=== PATIENT | female | born 1945 | race American Indian/Alaskan Native ===

== ENCOUNTER 2018-07-04 12:43 | Emergency (ER) | payer MEDICARE, MEDICAID ==
[2018-07-04 12:44] VITALS: BMI 31.4
[2018-07-04] MEDS ORDERED: Lidocaine 5% Patch TD ONE (13:17)
--- NOTE | 2018-07-04 13:17 | ED PDOC ---
Arrival/HPI - General Chief Complaint: Trauma Time Seen by Provider: 07/04/18 12:44 Historian: Patient - History of Present Illness Narrative History of Present Illness (Text): 07/04/18 13:09 73 year old F with pmh of cholecystectomy and diabetes present for evaluation s/p mechanical fall on her left side last week. Patient reports she needed help returning to her feet but was still able to ambulate. Patient denies feeling diz zy prior to fall and LOC after. Patient complains of a contusion on her left hip and buttocks as well as chronic generalized weakness. Patient endorses consuming tylenol to alleviate pain. Patient denies any fevers, chills, headache, dizziness, chest pain, shortness of breath, dyspnea on exertion, cough, abdominal pain, nausea, vomiting, diarrhea, neck pain, or any other complaint. Time/Duration: < week Symptom Onset: Sudden Symptom Course: Unchanged Activities at Onset: Light Context: Home Past Medical History - Provider Review Nursing Documentation Reviewed: Yes - Infectious Disease Hx of Infectious Diseases: None - Tetanus Immunization Tetanus Immunization: Unknown - Reproductive Menopause: Yes - Cardiac Hx Cardiac Disorders: Yes (cad) Hx Angina: Yes Hx Circulatory Problems: Yes Hx Congestive Heart Failure: Yes Hx Hypertension: Yes Hx Peripheral Edema: Yes Hx Peripheral Vascular Disease: Yes Other/Comment: h/o leaking valve - Pulmonary Hx Respiratory Disorders: Yes Hx Bronchitis: Yes Hx Chronic Obstructive Pulmonary Disease (COPD): Yes Hx Respiratory Tract Infection: Yes Hx Sleep Apnea: Yes (STOPPED USING C PAP) Hx Tuberculosis: No - Neurological Hx Neurological Disorder: Yes Hx Dizziness: Yes - HEENT Hx HEENT Disorder: Yes Hx Cataracts: Yes (left iol) - Renal Hx Renal Disorder: Yes Other/Comment: HX: CYST ON KIDNEYS - Endocrine/Metabolic Hx Endocrine Disorders: Yes Hx Diabetes Mellitus Type 2: Yes - Hematological/Oncological Hx Blood Disorders: Yes Hx Anemia: Yes Hx Blood Transfusions: No Hx Bruising: Yes Hx Cancer: Yes (UTERINE 2007-HYSTERECTOMY -NO CHEMO) - Integumentary Hx Dermatological Disorder: Yes (bruises) - Musculoskeletal/Rheumatological Hx Musculoskeletal Disorders: Yes Hx Arthritis: Yes Hx Back Pain: Yes Hx Falls: No Hx Herniated Disk: Yes Hx Unsteady Gait: Yes ("SLOW GAIT") - Gastrointestinal Hx Gastrointestinal Disorders: Yes (Chronic Constipation) Hx Gall Bladder Disease: Yes Hx Gastroesophageal Reflux: Yes - Genitourinary/Gynecological Hx Genitourinary Disorders: Yes Hx Incontinence: Yes Hx Uterine Cancer: Yes Hx Urinary Tract Infection: Yes Other/Comment: HX:PROLAPSED BLADDER - Psychiatric Hx Psychophysiologic Disorder: Yes Hx Anxiety: Yes Hx Panic Disorder: Yes Hx Substance Use: No - Surgical History Hx Angioplasty: Yes Hx Cardiac Catheterization: Yes Hx Coronary Stent: Yes (X1) Hx Hysterectomy: Yes (2007) Other/Comment: ectopic - Anesthesia Hx Anesthesia: Yes Hx Anesthesia Reactions: Yes (TROUBLE BREATHING/INTUBATED /ICU POST HYST) Hx Malignant Hyperthermia: No - Suicidal Assessment Feels Threatened In Home Enviroment: No Family/Social History - Physician Review Nursing Documentation Reviewed: Yes Family/Social History: Unknown Family HX Smoking Status: Former Smoker Hx Alcohol Use: No Hx Substance Use: No Hx Substance Use Treatment: No Allergies/Home Meds Allergies/Adverse Reactions: Allergies acetaminophen [From Percocet] Allergy (Severe, Verified 07/04/18 13:03) HALLUCINATIONS codeine Allergy (Severe, Verified 07/04/18 13:03) NAUSEA/DIZZINESS oxycodone HCl [From Percocet] Allergy (Severe, Verified 07/04/18 13:03) HALLUCINATIONS Home Medications: Home Meds Medication Instructions Recorded Confirmed Aspirin [Aspirin EC] 81 mg PO DAILY 05/01/14 05/25/18 Cholecalciferol (Vitamin D3) 1,000 iu PO DAILY 05/01/14 05/25/18 [Vitamin D3] Insulin Aspart, Recombinant 10 unit SC BID 05/01/14 05/25/18 [Novolog] Insulin Glargine, Recombina 35 unit SC HS 05/01/14 05/25/18 [Lantus] amLODIPine [Norvasc] 10 mg PO DAILY 05/01/14 05/25/18 Atorvastatin [Lipitor] 40 mg PO DAILY 07/15/15 05/25/18 Nitroglycerin [Nitrostat] 0.4 mg SL PRN PRN 07/15/15 05/25/18 Isosorbide Mononitrate [Isosorbide 30 mg PO DAILY 02/02/18 05/25/18 Mononitrate ER] Clopidogrel [Plavix] 75 mg PO DAILY 02/04/18 05/25/18 Albuterol 0.5% [Albuterol 0.5% 0.5 ml IH DAILY 05/25/18 05/25/18 Inhal Iliana (2.5 mg/0.5 ml) UD] Fish Oil/Dha/Epa [Fish Oil 1,200 1 each PO DAILY 05/25/18 05/25/18 mg Fish Oil] metFORMIN [glucOPHAGE] 500 mg PO QPM 05/25/18 05/25/18 Review of Systems - Physician Review All systems were reviewed & negative as marked: Yes - Review of Systems Constitutional: Normal Eyes: Normal ENT: Normal Respiratory: Normal. absent: SOB Cardiovascular: Normal Gastrointestinal: Normal. absent: Abdominal Pain, Diarrhea, Nausea, Vomiting Genitourinary Female: Normal Musculoskeletal: Back Pain (mild to lumbar region) Skin: Normal Neurological: Normal. absent: Dizziness Endocrine: Normal Hemo/Lymphatic: Normal Psychiatric: Normal Physical Exam Vital Signs Reviewed: Yes Vital Signs Temp Pulse Resp BP Pulse Ox 07/04/18 12:58 99.1 F 108 H 20 143/88 99 Temperature: Afebrile Blood Pressure: Normal Pulse: Tachycardic Respiratory Rate: Normal Appearance: Positive for: Well-Appearing, Non-Toxic, Comfortable Pain Distress: Mild Mental Status: Positive for: Alert and Oriented X 3 - Systems Exam Head: Present: Atraumatic, Normocephalic Pupils: Present: PERRL Extroacular Muscles: Present: EOMI Conjunctiva: Present: Normal Mouth: Present: Moist Mucous Membranes Neck: Present: Normal Range of Motion Respiratory/Chest: Present: Clear to Auscultation, Good Air Exchange. No: Respiratory Distress, Accessory Muscle Use Cardiovascular: Present: Regular Rate and Rhythm, Normal S1, S2. No: Murmurs Abdomen: No: Tenderness, Distention, Peritoneal Signs Back: Present: Paraspinal Tenderness (to lumbar region), Pain with Leg Raise (negative straight leg raise), Other (tenderness to palpatation to left hip) Upper Extremity: Present: Normal Inspection. No: Cyanosis, Edema Lower Extremity: Present: Normal Inspection. No: Edema Neurological: Present: GCS=15, CN II-XII Intact, Speech Normal Skin: Present: Warm, Dry, Normal Color. No: Rashes Psychiatric: Present: Alert, Oriented x 3, Normal Insight, Normal Concentration Medical Decision Making ED Course and Treatment: 07/04/18 13:09 Impression: 73 year old F present for evaluation s/p mechanical fall last week. Plan: -- Tylenol -- Lidoderm -- LS Spine with OBL -- Reassess and disposition Prior Visits: Notes and results from previous visits were reviewed. Patient was last seen in the emergency department on Progress Notes: 07/04/18 15:07 XRs reviewed and show no evidence of fracture or evidence of soft tissue swelling. Patient noted to be resting comfortably in bed and is updated on image findings. She reports improvement in her symptoms and desires to go home. She demonstrates understanding to follow up with her PCP and instructed to take OTC analgesics to manage her pain. Opprtunity for questions given and answered. She is stable for discharge. - RAD Interpretation Narrative RAD Interpretations (Text): 07/04/18 15:15 X-ray of Hip/Pelvis reviewed by radiologist, shows: FINDINGS: There is no evidence of fracture. There is no significant degenerative change. IMPRESSION: No evidence of fracture X-ray of Lumbar Spine reviewed by radiologist, shows: BONES: Normal alignment. No listhesis. No fracture. DISC SPACES: Unremarkable. OTHER FINDINGS: Severe facet arthropathy at L4-5 and L5-S1. Mild anterolisthesis of L4. Loss of disc height at L5-S1 IMPRESSION: Severe facet arthropathy at L4-5 and L5-S1. Mild anterolisthesis of L4. Loss of disc height at L5-S1 [employer]: Radiologist - Scribe Statement The provider has reviewed the documentation as recorded by the Joanie Hawkins All medical record entries made by the Chrisibjesus were at my direction and personally dictated by me. I have reviewed the chart and agree that the record accurately reflects my personal performance of the history, physical exam, medical decision making, and the department course for this patient. I have also personally directed, reviewed, and agree with the discharge instructions and disposition. Disposition/Present on Arrival - Present on Arrival Any Indicators Present on Arrival: No History of DVT/PE: No History of Uncontrolled Diabetes: No Urinary Catheter: No History of Decub. Ulcer: No History Surgical Site Infection Following: None - Disposition Have Diagnosis and Disposition been Completed?: Yes Diagnosis: Fall, Left hip pain Disposition: HOME/ ROUTINE Disposition Time: 15:12 Patient Plan: Discharge Patient Problems: Current Active Problems Problem Status Onset Fall Acute Left hip pain Acute Discharge Instructions (ExitCare): Hip Pain (DC), Getting Up From a Fall Print Language: CHINESE Additional Instructions: All medical record entries made by the Scribe were at my direction and personally dictated by me. I have reviewed the chart and agree that the record accurately reflects my personal performance of the history, physical exam, medical decision making, and the department course for this patient. I have also personally directed, reviewed, and agree with the discharge instructions and disposition. Please follow up with your PMD in 1 week Please take Tylenol for pain Referrals: Nery Figueroa MD [Primary Care Provider] - Follow up with primary Aramis Cohn MD [Medical Doctor] - Follow up with primary Forms: [employer] [employer] (Jordanian)
--- NOTE | 2018-07-04 14:44 | RAD ---
Date of service: 07/04/2018 PROCEDURE: Pelvis and left hip HISTORY: s/p fall on hip COMPARISON: TECHNIQUE: Four views FINDINGS: There is no evidence of fracture. There is no significant degenerative change. IMPRESSION: No evidence of fracture
--- NOTE | 2018-07-04 14:46 | RAD ---
Date of service: 07/04/2018 PROCEDURE: Radiographs of the Lumbar Spine. HISTORY: s/p fall last week w/ lumbar buttock pain COMPARISON: No prior. TECHNIQUE: Four views obtained. FINDINGS: BONES: Normal alignment. No listhesis. No fracture. DISC SPACES: Unremarkable. OTHER FINDINGS: Severe facet arthropathy at L4-5 and L5-S1. Mild anterolisthesis of L4. Loss of disc height at L5-S1 IMPRESSION: Severe facet arthropathy at L4-5 and L5-S1. Mild anterolisthesis of L4. Loss of disc height at L5-S1
[2018-07-04 15:38] VITALS: BP 140/82; PULSE 82; RESP 18; TEMP 98.6; O2SAT 98
== END 2018-07-04 15:30 | disposition home or self-care (01) ==
LOC: ED 12:43
DX: M25.552 Pain in left hip (principal); W19.XXXA Unspecified fall, initial encounter; I25.10 Atherosclerotic heart disease of native coronary artery without angina pectoris; I50.9 Heart failure, unspecified; I10 Essential (primary) hypertension; E11.9 Type 2 diabetes mellitus without complications; Z87.891 Personal history of nicotine dependence